=== PATIENT | male | born 1985 | race Caucasian/White ===

== ENCOUNTER 2017-02-05 17:40 | Emergency (ER) | payer BC ==
[2017-02-05] MEDS ORDERED: NS 0.9% 1000 ML* 2,000 ML IV ONE (19:01)
[2017-02-05 19:37] LABS: Hematocrit 43 % (42-52); Hemoglobin 14.9 g/dl (14.0-18.0); Mean Corpuscular HGB Conc 35 g/dl (31-36); Mean Corpuscular Hemoglobin 30 pg (27-31); Mean Corpuscular Volume 86 fL (80-94); Mean Platelet Volume 9 um3 (7.4-10.4); Red Cell Distribution Width 13 % (10.5-15); White Blood Count 11.3 10^3/ul (3.5-10.8)
[2017-02-05 19:52] LABS: Albumin 4.5 g/dL (3.2-5.2); BUN/Creatinine Ratio 16.5 (8-20); C Reactive Protein 5.57 mg/L (< 5.00); Calcium 9.4 mg/dL (8.6-10.3); EGFR Non-African American 97.2 (>60); Globulin 3.3 g/dL (2-4); Potassium 3.4 mmol/L (3.5-5.0); Total Bilirubin 0.4 mg/dL (0.2-1.0); Total Protein 7.8 g/dL (6.4-8.9)
[2017-02-05] MEDS ORDERED: Iohexol 300* (CONTRAST) 10 ML SDV IV ONE (20:20)
[2017-02-05 20:42] LABS: Urine Bilirubin Negative (Negative); Urine Glucose Negative (Negative); Urine Nitrite Negative (Negative)
--- NOTE | 2017-02-05 21:56 | RAD ---
INDICATION: Left perianal abscess, history of Crohn's disease. COMPARISON: There are no prior studies available for comparison. TECHNIQUE: A CT scan of the abdomen and pelvis was performed with intravenous and without oral contrast following intravenous injection of 93 ml of Omnipaque 300 nonionic contrast. Contiguous axial sections were obtained from the lung bases through the symphysis pubis. Images were reconstructed in the coronal and sagittal planes. FINDINGS: There is mild dependent bilateral lower lobe subsegmental atelectasis. No pleural effusion is present. The liver and spleen are within normal limits in size without significant focal abnormality. No calcified gallstones are seen. The pancreas appears to be within normal limits in size. The kidneys and adrenal glands are normal in size. No hydronephrosis is seen. No significant focal renal abnormality is seen. The aorta is normal in caliber and demonstrates homogeneous contrast opacification. No significant enlarged retroperitoneal lymph nodes are seen. The stomach, small and large bowel appear nondistended. The appendix is within normal limits. There is no evidence for diverticulitis or colitis. There is interstitial stranding in the left perianal region. There is suggestion of a tract extending toward the medial left gluteal fold possibly representing a fissure. No discrete fluid collection or abscess is seen. No free intraperitoneal air or fluid is seen. No significant focal osseous abnormality is seen. IMPRESSION: INFLAMMATORY CHANGE IN THE FAT IN THE LEFT PERIANAL REGION AND FINDINGS SUSPICIOUS FOR A PERIANAL FISTULA. IF THE PATIENT'S SYMPTOMS PERSIST THIS CAN BE FURTHER EVALUATED WITH AN OUTPATIENT MRI OF THE PELVIS WITH CONTRAST.
[2017-02-05] MEDS ORDERED: Ciprofloxacin TAB* 500 MG PO ONE ×2 (23:16→23:18)
[2017-02-05] MEDS ORDERED: metroNIDAZOLE TAB* 250 MG PO ONE ×2 (23:17)
--- NOTE | 2017-02-05 23:33 | ED ---
Brayan Ledezma Billy, scribed for Daniel Aguilar MD on 02/05/17 at 1858 . GI/ HPI - HPI Summary HPI Summary: Patient is a 31 year-old male coming to [facility] for evaluation of a perianal abscess on his left perineum that he first noticed yesterday. He has a history of similar abscesses in the past as well as a history of Crohn's Disease. He said that the abscess was approximately golf ball-sized this morning. Pain severity is 2/10 at rest, but 8/10 with any applied pressure. He has no other symptoms or complaints at this time. - History of Current Complaint Chief Complaint: EDGeneral Time Seen by Provider: 02/05/17 18:50 Stated Complaint: ABCESS Hx Obtained From: Patient Onset/Duration: Started Days Ago Timing: Constant Severity: Moderate Current Severity: Moderate Pain Intensity: 2 - 8/10 with any applied pressure Location of Pain: Anal Associated Signs and Symptoms: Positive: Negative Aggravating Factor(s): Palpation, Sitting Alleviating Factor(s): Nothing - Allergy/Home Medications Allergies/Adverse Reactions: Allergies Allergy/AdvReac Type Severity Reaction Status Date / Time Codeine Allergy Rash Verified 02/05/17 17:46 PMH/Surg Hx/FS Hx/Imm Hx Endocrine/Hematology History: Denies: Hx Diabetes GI History: Reports: Hx Crohn's Disease Musculoskeletal History: Denies: Hx Rheumatoid Arthritis, Hx Osteoporosis Infectious Disease History: No Infectious Disease History: Denies: Traveled Outside the [place] in Last 30 Days - Family History Known Family History: Positive: Cardiac Disease, Diabetes - Social History Alcohol Use: Occasionally - 2-3 drinks a week Hx Substance Use: No Substance Use Type: Reports: None Hx Tobacco Use: No Smoking Status (MU): Never Smoked Tobacco Review of Systems Negative: Fever, Chills Positive: Other - perianal abscess. Negative: Abdominal Pain, Vomiting, Diarrhea, Nausea All Other Systems Reviewed And Are Negative: Yes Physical Exam Triage Information Reviewed: Yes Vital Signs On Initial Exam: Initial Vitals Temp Pulse Resp BP Pulse Ox 97.9 F 76 20 138/78 100 02/05/17 17:43 02/05/17 17:43 02/05/17 17:43 02/05/17 17:43 02/05/17 17:43 Vital Signs Reviewed: Yes Appearance: Positive: Well-Appearing, No Pain Distress Skin: Positive: Warm, Skin Color Reflects Adequate Perfusion, Dry, Other - On the left side of the anus, approximately 2 cm from the anus, there is a firm, erythematous region that is tender to palpation. Head/Face: Positive: Normal Head/Face Inspection Eyes: Positive: EOMI, TIMOTEO ENT: Positive: Normal ENT inspection Neck: Positive: Supple, Nontender Respiratory/Lung Sounds: Positive: Clear to Auscultation, Breath Sounds Present Cardiovascular: Positive: RRR Abdomen Description: Positive: Nontender, Soft Musculoskeletal: Positive: Normal, Strength/ROM Intact Neurological: Positive: Normal, Sensory/Motor Intact, Alert, Oriented to Person Place, Time Psychiatric: Positive: Affect/Mood Appropriate Diagnostics - Vital Signs Vital Signs Temp Pulse Resp BP Pulse Ox 02/05/17 17:43 97.9 F 76 20 138/78 100 - Laboratory Lab Results: Lab Results 02/05/17 02/05/17 02/05/17 Range/Units 19:20 19:20 19:20 WBC 11.3 H (3.5-10.8) 10^3/ul RBC 5.00 (4.0-5.4) 10^6/ul Hgb 14.9 (14.0-18.0) g/dl Hct 43 (42-52) % MCV 86 (80-94) fL MCH 30 (27-31) pg MCHC 35 (31-36) g/dl RDW 13 (10.5-15) % Plt Count 249 (150-450) 10^3/ul MPV 9 (7.4-10.4) um3 Neut % (Auto) 69.1 (38-83) % Lymph % (Auto) 20.2 L (25-47) % [place] % (Auto) 6.7 (1-9) % Eos % (Auto) 3.6 (0-6) % Baso % (Auto) 0.4 (0-2) % Absolute Neuts (auto) 7.8 H (1.5-7.7) 10^3/ul Absolute Lymphs (auto) 2.3 (1.0-4.8) 10^3/ul Absolute Monos (auto) 0.8 (0-0.8) 10^3/ul Absolute Eos (auto) 0.4 (0-0.6) 10^3/ul Absolute Basos (auto) 0 (0-0.2) 10^3/ul Absolute Nucleated RBC 0.01 10^3/ul Nucleated RBC % 0.1 INR (Anticoag Therapy) 0.94 (0.89-1.11) APTT 28.6 (26.0-36.3) seconds Sodium 135 (133-145) mmol/L Potassium 3.4 L (3.5-5.0) mmol/L Chloride 101 (101-111) mmol/L Carbon Dioxide 28 (22-32) mmol/L Anion Gap 6 (2-11) mmol/L BUN 15 (6-24) mg/dL Creatinine 0.91 (0.67-1.17) mg/dL Est GFR ( Amer) 125.0 (>60) Est GFR (Non-Af Amer) 97.2 (>60) BUN/Creatinine Ratio 16.5 (8-20) Glucose 91 (70-100) mg/dL Lactic Acid (0.5-2.0) mmol/L Calcium 9.4 (8.6-10.3) mg/dL Total Bilirubin 0.40 (0.2-1.0) mg/dL AST 20 (13-39) U/L ALT 21 (7-52) U/L Alkaline Phosphatase 74 (34-104) U/L C-Reactive Protein 5.57 H (< 5.00) mg/L Total Protein 7.8 (6.4-8.9) g/dL Albumin 4.5 (3.2-5.2) g/dL Globulin 3.3 (2-4) g/dL Albumin/Globulin Ratio 1.4 (1-3) Lipase 23 (11.0-82.0) U/L Urine Color Urine Appearance Urine pH (5-9) Ur Specific [place] (1.010-1.030) Urine Protein (Negative) Urine Ketones (Negative) Urine Blood (Negative) Urine Nitrate (Negative) Urine Bilirubin (Negative) Urine Urobilinogen (Negative) Ur Leukocyte Esterase (Negative) Urine Glucose (Negative) 02/05/17 02/05/17 Range/Units 19:20 20:30 WBC (3.5-10.8) 10^3/ul RBC (4.0-5.4) 10^6/ul Hgb (14.0-18.0) g/dl Hct (42-52) % MCV (80-94) fL MCH (27-31) pg MCHC (31-36) g/dl RDW (10.5-15) % Plt Count (150-450) 10^3/ul MPV (7.4-10.4) um3 Neut % (Auto) (38-83) % Lymph % (Auto) (25-47) % [place] % (Auto) (1-9) % Eos % (Auto) (0-6) % Baso % (Auto) (0-2) % Absolute Neuts (auto) (1.5-7.7) 10^3/ul Absolute Lymphs (auto) (1.0-4.8) 10^3/ul Absolute Monos (auto) (0-0.8) 10^3/ul Absolute Eos (auto) (0-0.6) 10^3/ul Absolute Basos (auto) (0-0.2) 10^3/ul Absolute Nucleated RBC 10^3/ul Nucleated RBC % INR (Anticoag Therapy) (0.89-1.11) APTT (26.0-36.3) seconds Sodium (133-145) mmol/L Potassium (3.5-5.0) mmol/L Chloride (101-111) mmol/L Carbon Dioxide (22-32) mmol/L Anion Gap (2-11) mmol/L BUN (6-24) mg/dL Creatinine (0.67-1.17) mg/dL Est GFR ( Amer) (>60) Est GFR (Non-Af Amer) (>60) BUN/Creatinine Ratio (8-20) Glucose (70-100) mg/dL Lactic Acid 0.7 (0.5-2.0) mmol/L Calcium (8.6-10.3) mg/dL Total Bilirubin (0.2-1.0) mg/dL AST (13-39) U/L ALT (7-52) U/L Alkaline Phosphatase (34-104) U/L C-Reactive Protein (< 5.00) mg/L Total Protein (6.4-8.9) g/dL Albumin (3.2-5.2) g/dL Globulin (2-4) g/dL Albumin/Globulin Ratio (1-3) Lipase (11.0-82.0) U/L Urine Color Yellow Urine Appearance Clear Urine pH 6.0 (5-9) Ur Specific [place] 1.008 L (1.010-1.030) Urine Protein Negative (Negative) Urine Ketones Negative (Negative) Urine Blood Negative (Negative) Urine Nitrate Negative (Negative) Urine Bilirubin Negative (Negative) Urine Urobilinogen Negative (Negative) Ur Leukocyte Esterase Negative (Negative) Urine Glucose Negative (Negative) Result Diagrams: 02/05/17 19:20 02/05/17 19:20 Lab Statement: Any lab studies that have been ordered have been reviewed, and results considered in the medical decision making process. - CT abd/pel CT Interpretation Completed By: Radiologist - INFLAMMATORY CHANGE IN THE FAT IN THE LEFT PERIANAL REGION AND FINDINGS SUSPICIOUS FOR A PERIANAL FISTULA. IF THE PATIENT'S SYMPTOMS PERSIST THIS CAN BE FURTHER EVALUATED WITH AN OUTPATIENT MRI OF THE PELVIS WITH CONTRAST. GIGU Course/Dx - Course Course Of Treatment: NO CRITICAL CARE TIME Assessment/Plan: DISCUSSED WITH SURGERY AND GI. PATIENT WILL START CIPRO/FLAGYL AND F/U 02/07/[address] CARTWRIGHT AND GI. RETURN TO ED IF WORSE. DISCHARGE HOME STABLE. - Diagnoses Provider Diagnoses: Crohn's disease of perianal region with fistula - Physician Notifications Discussed Care Of Patient With: Dr. Cartwright (surgery) @ 2203: recommends GI consult. Dr. Rausch (GI) @ 2205: start the patient on antibiotics. Follow up with surgery on Tuesday02/07/17. Discharge - Discharge Plan Condition: Stable Disposition: HOME Prescriptions: Ciprofloxacin TAB* [Cipro 500 MG TAB*] 500 mg PO BID #18 tab Metronidazole [Flagyl 500 MG TAB] 500 mg PO TID #28 tab Patient Education Materials: Anorectal Abscess and Anal Fistula (ED), Crohn Disease (ED) Referrals: Julián Wheat [Primary Care Provider] - Jaiden Elizabeth MD [Medical Doctor] - Mike Cartwright MD [Medical Doctor] - Additional Instructions: FOLLOW UP WITH YOUR DIRECTOR OF ACCOUNTS PAYABLE, DR BALLARD. FOLLOW UP ON 02/07/17, WITH DR CARTWRIGHT, SURGERY. RETURN TO THE EMERGENCY DEPARTMENT FOR ANY WORSENING OF YOUR CONDITION; PAIN, FEVER, YOU FEEL ILL OR QUESTIONS OR CONCERNS. The documentation as recorded by the Brayan santos Billy accurately reflects the service I personally performed and the decisions made by me, Daniel Aguilar MD.
[2017-02-06 01:24] VITALS: BP 133/75
== END 2017-02-05 23:48 | disposition home or self-care (01) ==
LOC: ED 17:40
DX: K50.10 Crohn's disease of large intestine without complications (principal); K61.0 Anal abscess
CPT/HCPCS: 36415; 74177; 80053; 81003; 83605; 83690; 85025; 85610; 85730; 86140; 87040; 99283; A9270-GY; Q9967